=== PATIENT | male | born 1985 | race Caucasian/White ===

== ENCOUNTER 2017-11-02 15:44 | Emergency (ER) | payer SELFPAY ==
--- NOTE | 2017-11-02 22:56 | RAD ---
RIGHT SHOULDER THREE VIEWS: 11/02/17 A third degree acromioclavicular separation is present. There is a wide distance between the distal e nd of the clavicle and the acromion. No fracture was seen. There is no dislocation of the glenohumera l joint. The sternoclavicular joint seems wide as well. Correlate with clinical exam. IMPRESSION: High degree AC separation. Possible separation of the sternoclavicular joint. POS: HOME
== END 2017-11-02 16:20 ==
LOC: BURERS 15:44
DX: S43.101A Unspecified dislocation of right acromioclavicular joint, initial encounter (principal); W19.XXXA Unspecified fall, initial encounter